=== PATIENT | female | born 1960 | race Caucasian/White ===

== ENCOUNTER 2025-08-09 20:38 | Inpatient (IN) | payer OTHER ==
[~2025-08-09] VITALS: Ht 167.6 cm; Wt 78.2 kg
[~2025-08-09 20:38] MED LIST: Augmentin 875-1 EACH PO; CYCL10 PO; DULO60 PO; HYDACE5 PO; NAPR500 PO; PARO20; RXCYCL10 PO; RXHYDACE PO
[2025-08-09 21:03] LABS: BASOPHILS ABSOLUTE AUTO 0.04 K/mm3 (0.00-0.23); BASOPHILS PERCENT AUTO 0 % (0-2); EOSINOPHILS ABSOLUTE AUTO 0.33 K/mm3 (0.00-0.68); EOSINOPHILS PERCENT AUTO 3 % (0-6); Hematocrit 42.3 % (33.0-51.0); Hemoglobin 14.1 g/dL (11.5-16.0); IMMATURE GRAN ABSOLUTE AUTO 0.03 K/mm3 (0.00-0.10); IMMATURE GRAN PERCENT AUTO 0 % (0-1); LYMPHOCYTES ABSOLUTE AUTO 1.31 K/mm3 (0.84-5.20); LYMPHOCYTES PERCENT AUTO 12 % (21-46); MONOCYTES ABSOLUTE AUTO 0.92 K/mm3 (0.16-1.47); MONOCYTES PERCENT AUTO 8 % (4-13); Mean Corpuscular HGB Conc 33.3 g/dL (31.5-36.5); Mean Corpuscular Volume 91 fL (80-100); NEUTROPHILS ABSOLUTE AUTO 8.61 K/mm3 (1.96-9.15); NEUTROPHILS PERCENT AUTO 77 % (41-73); NRBC ABSOLUTE 0.00 K/mm3 (0.00-0.02); NRBC Auto 0.0 /100 WBC (0.0-0.2); Platelet Count 186 K/mm3 (150-400); RDW Coefficient Variation 11.9 % (11.7-14.2); RDW Standard Deviation 39.8 fL (35.1-46.3)
[2025-08-09 21:22] LABS: Alanine Aminotransfer (ALT/SGP 49.0 U/L (12-78); Albumin, Blood 3.1 g/dL (3.4-5.0); Albumin/Globulin Ratio 1.0 (0.8-1.8); Anion Gap 10.0 mmol/L (3-11); Aspartate Aminotrans (AST/SGOT 34.0 U/L (12-37); Bilirubin, Total 0.5 mg/dL (0.1-1.0); Blood Urea Nitrogen 20.0 mg/dL (8-24); CO2, Blood 21.0 mmol/L (21-32); Calcium, Blood 8.6 mg/dL (8.5-10.1); Chloride, Blood 113.0 mmol/L (98-108); Creatinine, Blood 0.66 mg/dL (0.40-1.00); Globulin, Blood 3.1 g/dL (2.2-4.0); Glucose, Blood 160.0 mg/dL (70-99); Potassium, Blood 4.1 mmol/L (3.5-5.5); Sodium, Blood 140.0 mmol/L (136-145); Total Protein, Blood 6.2 g/dL (6.4-8.2)
[2025-08-09] MEDS ORDERED: LORazepam 2 MG/ML 1ML Injection IV ONE (22:45)
[2025-08-09] MEDS ORDERED: Ondansetron HCl 2 MG / ML 2ML Vial IV PRN (23:30)
[2025-08-09] MEDS ORDERED: LORazepam 2 MG/ML 1ML Injection IV PRN (23:30)
[2025-08-09] MEDS ORDERED: FLU VACC TS2025-26(6MOS UP)/PF 45 MCG/0.5 ML SYRINGE IM ONE (23:30)
[2025-08-09] MEDS ORDERED: Phentermine HCl30 MG PO (23:47)
[2025-08-09] MEDS ORDERED: Oxybutynin Chlor5 M1 PO (23:48)
[2025-08-09] MEDS ORDERED: ESTRADIOL42.5 GM VAG (23:48)
[2025-08-09] MEDS ORDERED: PARO10 PO (23:49)
[2025-08-10] VITALS (12 sets, daily range): BP systolic 79–110; BP diastolic 62–80
[2025-08-10 00:08] LABS: Source, Urine Clean Catch
[2025-08-10 00:16] LABS: Bilirubin, Urine Neg (Neg); Glucose Qualitative, Urine Neg (Neg); Ketones, Urine Neg (Neg); Leukocyte Esterase, Urine Neg (Neg); Protein, Urine 2+ (Neg); Specific Gravity, Urine 1.025 (1.003-1.022); Urobilinogen, Urine NORM (Normal)
[2025-08-10 00:38] LABS: Color, Urine Yellow (P-Yellow)
[2025-08-10 00:39] LABS: Red Blood Cells, Urine 0-2 /hpf (0-2)
[2025-08-10 01:09] LABS: Anti-Xa UFH, PHA Monitoring <0.10 IU/mL; Prothrombin Time Results 11.2 Sec (9.7-11.5)
[2025-08-10] MEDS ORDERED: Dose Adjust by Pharmacy XX STA (01:27)
[2025-08-10] MEDS ORDERED: Heparin Sodium,Porcine/0.5 NS 500 ML IV SCH (01:30)
[2025-08-10] MEDS ORDERED: Heparin Sodium 5000 Units/ML 1ML MDV IV ONE (01:30)
--- NOTE | 2025-08-10 01:58 | NUR ---
TRANSFER NOTE PATIENT TRANSFERRED TO PCU AT 0045. PT A&O X4. ABLE TO AMBULATE FROM [facility] TO BED WITH SBA. STEADY GAIT. PT REPORTING DYSPNEA WITH EXERTION, ORTHOPNEA, AND 2/10 SUBSTERNAL CHEST PRESSURE. PT STATING THAT CHEST PRESSURE WAS PREVIOUSLY 7/10 AND HAS GREATLY IMPROVED. BP SOFT. PT FINISHING 1L LR BOLUS UPON ARRIVAL TO PCU. COMPLETED 500ML LR BOLUS PER EMAR WITH 1L LR INFUSION STARTED AFTER BOLUS. MAP REMAINS >65. PT DENIES SOB AND DIZZINESS AT REST. HEP GTT STARTED PER EMAR. CARDIOLOGY CONSULT PLACED. PT REPORTING PAIN WITH PALPATION OF LEFT ANKLE AND REPORTS "ROLLING" IT RECENTLY, STATING THE SWELLING HAS GONE DOWN. PT RESTING IN BED AT THIS TIME. CYCLING BP'S. ST ON MONITOR. ON RA WITH SPO2 >92% ON CONTINUOUS SPO2 MONITORING. AFEBRILE. BED IN LOWEST POSITION AND CALL LIGHT WITHIN REACH.
[2025-08-10 02:14] LABS: BASOPHILS ABSOLUTE AUTO 0.03 K/mm3 (0.00-0.23); BASOPHILS PERCENT AUTO 0 % (0-2); EOSINOPHILS ABSOLUTE AUTO 0.27 K/mm3 (0.00-0.68); EOSINOPHILS PERCENT AUTO 3 % (0-6); Hematocrit 38.1 % (33.0-51.0); Hemoglobin 12.4 g/dL (11.5-16.0); IMMATURE GRAN ABSOLUTE AUTO 0.02 K/mm3 (0.00-0.10); IMMATURE GRAN PERCENT AUTO 0 % (0-1); LYMPHOCYTES ABSOLUTE AUTO 1.59 K/mm3 (0.84-5.20); LYMPHOCYTES PERCENT AUTO 16 % (21-46); MONOCYTES ABSOLUTE AUTO 1.12 K/mm3 (0.16-1.47); MONOCYTES PERCENT AUTO 11 % (4-13); Mean Corpuscular HGB Conc 32.5 g/dL (31.5-36.5); Mean Corpuscular Volume 91 fL (80-100); NEUTROPHILS ABSOLUTE AUTO 6.90 K/mm3 (1.96-9.15); NEUTROPHILS PERCENT AUTO 70 % (41-73); NRBC ABSOLUTE 0.00 K/mm3 (0.00-0.02); NRBC Auto 0.0 /100 WBC (0.0-0.2); Platelet Count 150 K/mm3 (150-400); RDW Coefficient Variation 11.9 % (11.7-14.2); RDW Standard Deviation 39.8 fL (35.1-46.3)
[2025-08-10 02:24] LABS: Alanine Aminotransfer (ALT/SGP 46 U/L (12-78); Albumin, Blood 2.8 g/dL (3.4-5.0); Albumin/Globulin Ratio 1.1 (0.8-1.8); Anion Gap 10 mmol/L (3-11); Aspartate Aminotrans (AST/SGOT 37 U/L (12-37); Bilirubin, Total 0.4 mg/dL (0.1-1.0); Blood Urea Nitrogen 21 mg/dL (8-24); CHOL/HDL RATIO 2.5; CO2, Blood 23 mmol/L (21-32); Calcium, Blood 8.5 mg/dL (8.5-10.1); Chloride, Blood 111 mmol/L (98-108); Cholesterol 121 mg/dL (50-200); Creatinine, Blood 0.65 mg/dL (0.40-1.00); Globulin, Blood 2.5 g/dL (2.2-4.0); Glucose, Blood 123 mg/dL (70-99); HDL Cholesterol 48 mg/dL (>39); LDL/HDL RATIO 1.2; Low Density Lipoprotein Chol 56 mg/dL (0-110); Magnesium, Blood 2.0 mg/dL (1.6-2.4); Potassium, Blood 4.0 mmol/L (3.5-5.5); Sodium, Blood 140 mmol/L (136-145); Total Protein, Blood 5.3 g/dL (6.4-8.2); Triglycerides 83 mg/dL (30-160); Very Low Density Lipoprot Chol 16 mg/dL (6-32)
--- NOTE | 2025-08-10 05:17 | NUR ---
SHIFT SUMMARY SEE PREVIOUS NOTE NO NEURO CHANGES. PT STATING CHEST PRESSURE IS STILL 2/10 AND SHE HAS BEEN ABLE TO SLEEP DURING THIS SHIFT. HEP GTT AND LR INFUSING PER EMAR. PT ABLE TO AMULATE TO BATHROOM AND BACK TO BED. DENIED INCREASED CP OR SOB WITH EXERTION. ST ON MONITOR. BP CONTINUES TO BE SOFT WITH SBP 80-100S, MAP REMAINS >65. DENIES DIZZINESS. AFEBRILE. SBA FOR TRANSFERS. ABLE TO REPOSITION SELF IN BED INDEPENDENTLY. BED IN LOWEST POSITION AND CALL LIGHT WITHIN REACH. THIS RN WILL REPORT TO ONCOMING DAYSHIFT RN.
--- NOTE | 2025-08-10 18:18 | NUR ---
END OF SHIFT SUMMARY PT IS A/O X4 ABLE TO MAKE NEEDS KNOWN AND CAN MOVE EXTREMITIES EQUALLY AND BILATERALLY. PT IS AFEBRILE. CONTINUOUS CARDIAC MONITORING IN PLACE SHOWING SR IN THE 90'S, MAP >65. PT WILL REPORT OCCANSIONAL CHEST PAIN AND SOB WITH MOVEMENT. HEPARIN IS INFUSING AT 15 U/KG/HR. ECHO AND CT WAS DONE SHOWING BILATERAL PE AND VENOUS DUPLEX WAS DONE SHOWING A DVT THROUGHOUT LEFT LEG. PLAN IS TO MEDICALLY MANAGE WITH ANTICOAGULANTS PER MD. PT IS ON A CARDIAC DIET AND TOLERATES PO INTAKE WELL. PT IS SBA TO THE BATHROOM. PIV IS IN PLACE TO LAC AND LFA. BED IS IN LOWEST POSITION, CALL LIGHT IN REACH, WILL REPORT TO ONCOIMING SHIFT.
[2025-08-11 03:03] LABS: BASOPHILS ABSOLUTE AUTO 0.04 K/mm3 (0.00-0.23); BASOPHILS PERCENT AUTO 1 % (0-2); EOSINOPHILS ABSOLUTE AUTO 0.36 K/mm3 (0.00-0.68); EOSINOPHILS PERCENT AUTO 4 % (0-6); Hematocrit 36.4 % (33.0-51.0); Hemoglobin 11.9 g/dL (11.5-16.0); IMMATURE GRAN ABSOLUTE AUTO 0.02 K/mm3 (0.00-0.10); IMMATURE GRAN PERCENT AUTO 0 % (0-1); LYMPHOCYTES ABSOLUTE AUTO 2.74 K/mm3 (0.84-5.20); LYMPHOCYTES PERCENT AUTO 32 % (21-46); MONOCYTES ABSOLUTE AUTO 0.96 K/mm3 (0.16-1.47); MONOCYTES PERCENT AUTO 11 % (4-13); Mean Corpuscular HGB Conc 32.7 g/dL (31.5-36.5); Mean Corpuscular Volume 90 fL (80-100); NEUTROPHILS ABSOLUTE AUTO 4.50 K/mm3 (1.96-9.15); NEUTROPHILS PERCENT AUTO 52 % (41-73); NRBC ABSOLUTE 0.00 K/mm3 (0.00-0.02); NRBC Auto 0.0 /100 WBC (0.0-0.2); Platelet Count 159 K/mm3 (150-400); RDW Coefficient Variation 12.0 % (11.7-14.2); RDW Standard Deviation 39.9 fL (35.1-46.3)
[2025-08-11 03:23] LABS: Alanine Aminotransfer (ALT/SGP 46.0 U/L (12-78); Albumin, Blood 2.7 g/dL (3.4-5.0); Albumin/Globulin Ratio 1.0 (0.8-1.8); Anion Gap 9.0 mmol/L (3-11); Aspartate Aminotrans (AST/SGOT 29.0 U/L (12-37); Bilirubin, Total 0.6 mg/dL (0.1-1.0); Blood Urea Nitrogen 18.0 mg/dL (8-24); CO2, Blood 22.0 mmol/L (21-32); Calcium, Blood 8.1 mg/dL (8.5-10.1); Chloride, Blood 114.0 mmol/L (98-108); Creatinine, Blood 0.63 mg/dL (0.40-1.00); Globulin, Blood 2.6 g/dL (2.2-4.0); Glucose, Blood 103.0 mg/dL (70-99); Potassium, Blood 3.8 mmol/L (3.5-5.5); Sodium, Blood 141.0 mmol/L (136-145); Total Protein, Blood 5.3 g/dL (6.4-8.2)
[2025-08-11 03:39] VITALS: BP 93/71
--- NOTE | 2025-08-11 04:52 | NUR ---
SHIFT SUMMARY NO NEURO CHANGES. DENIES CHEST PAIN/PRESSURE AT THIS TIME. HEP GTT INFUSING PER EMAR. PT ABLE TO AMULATE TO BATHROOM AND BACK TO BED. REPORTING SOB WITH EXERTION. SR ON MONITOR. BP CONTINUES TO BE SOFT WITH SBP 90-100S, MAP REMAINS >65. DENIES DIZZINESS. AFEBRILE. SBA FOR TRANSFERS. ABLE TO REPOSITION SELF IN BED INDEPENDENTLY. BED IN LOWEST POSITION AND CALL LIGHT WITHIN REACH. THIS RN WILL REPORT TO ONCOMING DAYSHIFT RN.
[2025-08-11] MEDS ORDERED: Clarify Drug Order XX ONE (06:40)
[2025-08-11 07:46] VITALS: BP 100/71
[2025-08-11 11:41] VITALS: BP 97/72
[2025-08-11 15:49] VITALS: BP 108/77
--- NOTE | 2025-08-11 16:33 | NUR ---
SHIFT SUMMARY PT IS A/OX4. SBA R/T ASSISTANCE WITH LINES/CORDS. NO ACUTE CHANGES THROUGHOUT THIS SHIFT. CONTINUING HEPARIN GTT PER OCT. BP'S REMAIN SOFT. PT REPORTING SOB WITH EXERTION, HOWEVER WITH IMPROVMENT. ON RA, SATS >92%. PT IS CURRENTLY MEDICAL STATUS. FAMILY AT BEDSIDE THROUGHOUT THIS SHIFT. PT IS PLEASANT AND COOPERATIVE WITH CARE AND CALLS APPROPRIATELY.
[2025-08-11 20:08] VITALS: BP 109/66
[2025-08-11 23:30] VITALS: BP 110/77
[2025-08-12 03:53] VITALS: BP 101/83
[2025-08-12 04:58] LABS: Hematocrit 36.8 % (33.0-51.0); Hemoglobin 12.2 g/dL (11.5-16.0); Platelet Count 166 K/mm3 (150-400)
[2025-08-12 05:30] LABS: Magnesium, Blood 2.0 mg/dL (1.6-2.4)
[2025-08-12 05:31] LABS: Alanine Aminotransfer (ALT/SGP 39.0 U/L (12-78); Albumin, Blood 2.7 g/dL (3.4-5.0); Albumin/Globulin Ratio 1.0 (0.8-1.8); Anion Gap 8.0 mmol/L (3-11); Aspartate Aminotrans (AST/SGOT 25.0 U/L (12-37); Bilirubin, Total 0.8 mg/dL (0.1-1.0); Blood Urea Nitrogen 15.0 mg/dL (8-24); CO2, Blood 22.0 mmol/L (21-32); Calcium, Blood 8.3 mg/dL (8.5-10.1); Chloride, Blood 114.0 mmol/L (98-108); Creatinine, Blood 0.62 mg/dL (0.40-1.00); Globulin, Blood 2.7 g/dL (2.2-4.0); Glucose, Blood 90.0 mg/dL (70-99); Potassium, Blood 3.5 mmol/L (3.5-5.5); Sodium, Blood 140.0 mmol/L (136-145); Total Protein, Blood 5.4 g/dL (6.4-8.2)
[2025-08-12] MEDS ORDERED: Clarify Drug Order XX ONE (05:55)
--- NOTE | 2025-08-12 06:39 | NUR ---
SHIFT SUMMARY: PT A&OX4 CALM AND COOPERATIVE. ABLE TO MAKE NEEDS KNOWN AND CALLS APPROPRIATELY. VSS ON RA. HEPARIN GTT INFUSING AT 15 U/KG/HR. PT C/O CHEST PAIN AND ANXIOUS AT START OF SHIFT. MEDICATED PER EMAR AND PT REPORTS NO PAIN. PT IS SBA TO BATHROOM FOR LINE MANAGEMENT. PIV DRESSING CHANGED. NO OTHER SIGNIFICANT EVENTS TO REPORT. BED IS LOW AND LOCKED. CALL LIGHT WITHIN REACH. CONTINUE WITH CURRENT PLAN OF CARE.
[2025-08-12] MEDS ORDERED: Acetaminophen325 M1 PO (09:02)
[2025-08-12] MEDS ORDERED: ATOR40TA PO (09:05)
[2025-08-12] MEDS ORDERED: ELIQUIS5 M2 PO (09:05)
[2025-08-12] MEDS ORDERED: ELIQUIS5 M3 PO (09:05)
--- NOTE | 2025-08-12 10:23 | NUR ---
PATIENT AWAKE AND ALERT. ASSESSMENT COMPLETE. PATIENT DENIES CP OR SOB AT THIS TIME. LUNGS SOUND CLEAR WITH GOOD VOLUME. LEFT LEG/ ANKLE HAS SOME SLIGHT EDEMA. SLIGHTLY FAINT PEDAL PULSE WITH BILATEL PEDAL PULSES EQUAL. NO WARMTH OR REDNESS NOTED TO LEFT LEG. MEDICATION GIVEN AND EDUCATION PROVIDED. WILL EDUCATE MORE ON DISCHARGE
--- NOTE | 2025-08-12 11:56 | NUR ---
DISCHARGE INSTRUCTIONS GIVEN TO PATIENT AND FAMILY, THEY VERBALIZED UNDERSTANDING. IV'S REMOVED WITH TIP INTACT. MED ORDERS SENT TO [facility]. PATIENT LEFT VIA WC WITH .
== END 2025-08-12 11:54 | disposition home or self-care (01) | DRG 175 ==
LOC: ER 20:38 → ERHOLD 20:39 → PCU 20:39
PROVIDERS: Student in an Organized Health Care Education/Training Program; ADMIT Student in an Organized Health Care Education/Training Program
DX: I26.99 Other pulmonary embolism without acute cor pulmonale (principal); I21.A1 Myocardial infarction type 2; D68.51 Activated protein C resistance; I82.412 Acute embolism and thrombosis of left femoral vein; I82.432 Acute embolism and thrombosis of left popliteal vein; I82.442 Acute embolism and thrombosis of left tibial vein; I82.452 Acute embolism and thrombosis of left peroneal vein; F41.9 Anxiety disorder, unspecified; F17.210 Nicotine dependence, cigarettes, uncomplicated; I27.20 Pulmonary hypertension, unspecified; Z79.899 Other long term (current) drug therapy
CPT/HCPCS: 36415; 71046; 71260; 80053; 80061; 81001; 82947; 83690; 83735; 84443; 84484; 85014; 85018; 85025; 85049; 85379; 85520; 85610; 85730; 87086; 93005; 93010; 93306; 93970; 94762; 96361; 96374; 99285-25; A9270; G0008; G0378; J1644; J2060; J7120; Q9967